=== PATIENT | female | born 1935 | race Caucasian/White ===

== ENCOUNTER 2019-06-10 21:24 | Inpatient (IN) | payer MEDICARE ==
[~2019-06-10] VITALS: Ht 170.2 cm; Wt 54.0 kg
--- NOTE | 2019-06-10 20:30 | NUR ---
New admission, medical/nursing report received from KENYA Singleton. Patient arrived to [facility] acute rehab at 2020; stable condition, AAO x4. Primary language is Nepali. Room air, tolerating well. Vital signs are within normal limits. Pain is 2/10 - verbalized pain being tolerable. Physical assessment done. Skin assessment done. Fall prevention observed. Bed is in low and locked position, side rails up x2 for safety; bed alarm is on. Patient shows signs and symptoms of minor anxiety and irritability. Call light and frequently used items are within reach. Provided all needed education, including on how to use call light. Will continue to monitor and give care.
[2019-06-10] MEDS ORDERED: POLY15DR27 EACHEYE (22:13)
[2019-06-10] MEDS ORDERED: ENOX40DI SQ (22:13)
[2019-06-10] MEDS ORDERED: POLY17PO4 PO (22:13)
[2019-06-10] MEDS ORDERED: FLUT1BLS IH (22:13)
[2019-06-10] MEDS ORDERED: ALEN70TA6 PO (22:13)
[2019-06-10] MEDS ORDERED: AMLO10TA7 PO (22:13)
[2019-06-10] MEDS ORDERED: LOSA25TA3 PO (22:13)
[2019-06-10] MEDS ORDERED: ACET-73 PO (22:13)
[2019-06-10] MEDS ORDERED: MIRT15TA PO (22:13)
[2019-06-10] MEDS ORDERED: ALBU2.5V13 IH (22:13)
[2019-06-10] MEDS ORDERED: MAGN400O6 PO ×2 (22:13)
[2019-06-10] MEDS ORDERED: MAG-55 PO (22:13)
[2019-06-10] MEDS ORDERED: CHOL10002 PO (22:13)
[2019-06-10 22:19] VITALS: BP 124/64
--- NOTE | 2019-06-10 22:40 | NUR ---
Moved patient to room 118 due to patient not liking room 107. Patient expressed feeling anxiety in that room due to the room being too small and no direct view out of the window. Will continue monitor patient.
[2019-06-10] MEDS ORDERED: MAG HYDROX/AL HYDROX/SIMETH 30 ML LIQUID UDC PO PRN (23:45)
[2019-06-11] MEDS: MIRALAX 17 GM POWD.PACK PO SCH (00:15)
[2019-06-11] MEDS: MIRTAZAPINE 15 MG TABLET PO SCH ×2 (00:15→21:06)
[2019-06-11] MEDS: MAGNESIUM HYDROXIDE 30 ML LIQUID UDC PO SCH ×2 (00:16→21:05)
[2019-06-11] MEDS: MAGNESIUM HYDROXIDE 30 ML LIQUID UDC PO PRN (00:16)
--- NOTE | 2019-06-11 01:30 | NUR ---
Routine medication given at 0015 - tolerated well. Patient requested PRN Milk of Magnesia due to constipation - medication given at 0016 & tolerated well. Will continue to monitor patient.
[2019-06-11 04:50] VITALS: BP 138/69
--- NOTE | 2019-06-11 05:23 | NUR ---
Patient slept most of the night and is in stable condition. All needs met and anticipated. Bed is in low and locked position, bed alarm is on, and side rails up x2 for safety. Call light and frequently used items within the reach. Will endorse to oncoming nurse accordingly.
[2019-06-11] MEDS: ALENDRONATE SODIUM 70 MG TABLET PO SCH (07:31)
[2019-06-11] MEDS: ALBUTEROL SULFATE 2.5 MG/ 0.5 ML NEBU IH SCH ×3 (07:35→19:15)
[2019-06-11 08:22] VITALS: BP 146/67
[2019-06-11 08:34] LABS: BASOPHILS # (AUTO) 0.1 K/uL (0.0-8.0); BASOPHILS % (AUTO) 0.6 % (0.0-2.0); EOSINOPHILS # (AUTO) 0.2 K/uL (0.0-0.7); EOSINOPHILS % (AUTO) 1.9 % (0.0-7.0); HEMATOCRIT 37.2 % (31.2-41.9); HEMOGLOBIN 12.5 g/dL (10.9-14.3); LYMPHOCYTES # (AUTO) 1.6 K/uL (20.0-40.0); LYMPHOCYTES % (AUTO) 15.2 % (20.5-51.5); MEAN CORPUSCULAR HEMOGLOBIN 32.2 uug (24.7-32.8); MEAN CORPUSCULAR HGB CONC 34 g/dL (32.3-35.6); MONOCYTES # (AUTO) 1.5 K/uL (2.0-10.0); MONOCYTES % (AUTO) 14.2 % (0.0-11.0); NEUTROPHILS # (AUTO) 7.3 K/uL (1.8-8.9); NEUTROPHILS % (AUTO) 68.1 % (38.5-71.5); PLATELET COUNT (AUTO) 276 K/uL (179-408); RED BLOOD CELL COUNT(AUTO) 3.87 MIL/uL (3.63-4.92); WHITE BLOOD COUNT (AUTO) 10.7 K/uL (3.8-11.8)
[2019-06-11 08:49] LABS: CREATININE 0.9 mg/dL (0.6-1.3); MAGNESIUM 2.7 mg/dL (1.8-2.4); POTASSIUM 3.6 mmol/L (3.5-5.1)
[2019-06-11] MEDS: ENOXAPARIN SODIUM 40 MG/0.4 ML DISP.SYRIN SQ SCH (09:00)
[2019-06-11] MEDS: CHOLECALCIFEROL 1,000 UNIT TABLET PO SCH (13:47)
[2019-06-11] MEDS: FLUTICASONE/VILANTEROL 1 EACH BLST.W.DEV IH SCH (13:47)
[2019-06-11] MEDS: AMLODIPINE 10 MG TABLET PO SCH (13:47)
[2019-06-11] MEDS: LOSARTAN POTASSIUM 25 MG TABLET PO SCH (13:47)
[2019-06-11] MEDS: HYDROCODONE/APAP 5-325MG TABLET PO PRN (13:48)
[2019-06-11 16:00] VITALS: BP 115/52
[2019-06-11] MEDS: POLYVINYL ALCOHOL OPHT DROPS 15 ML BOTTLE EACHEYE SCH (17:05)
--- NOTE | 2019-06-11 19:50 | NUR ---
Pt in stable condition, AXO X3, jesus Warren is by the bedside. pt on 2l Oxygen. Addendum: 06/12/19 at 0147 by OLIVER ROBERTS RN Pt in stable condition, AXO X3, denies any pain raysa. Addendum: 06/12/19 at 0151 by OLIVER ROBERTS RN Disregard previous two notes, intended for different client. Thank you
[2019-06-11 20:38] VITALS: BP 119/60
--- NOTE | 2019-06-11 22:00 | NUR ---
pt c/o new right ear pain, no pain medicine on board, cold back applied, MD light armored reconnaissance officer notified MD light armored reconnaissance officer called back with telephone order of tramadol Q6h.
--- NOTE | 2019-06-11 22:01 | NUR ---
Disregard previous two notes, intended for different client. Thank you
[2019-06-12] MEDS: ALBUTEROL SULFATE 2.5 MG/ 0.5 ML NEBU IH SCH ×4 (00:56→19:54)
--- NOTE | 2019-06-12 01:53 | NUR ---
no acute events overnight, pt in stable condition, denies any pain, able to sleep during night time. will continue to monitor and assess
[2019-06-12 05:15] VITALS: BP 109/61
[2019-06-12] MEDS ORDERED: PATIENT MAY USE OWN MED- MD OK PO SCH (09:00)
[2019-06-12] MEDS: CHOLECALCIFEROL 1,000 UNIT TABLET PO SCH (09:12)
[2019-06-12] MEDS: AMLODIPINE 10 MG TABLET PO SCH (09:13)
[2019-06-12] MEDS: MIRALAX 17 GM POWD.PACK PO SCH (09:13)
[2019-06-12] MEDS: LOSARTAN POTASSIUM 25 MG TABLET PO SCH (09:13)
[2019-06-12] MEDS: FLUTICASONE/VILANTEROL 1 EACH BLST.W.DEV IH SCH (09:14)
[2019-06-12 09:20] VITALS: BP 130/65
[2019-06-12] MEDS: ENOXAPARIN SODIUM 40 MG/0.4 ML DISP.SYRIN SQ SCH (09:24)
[2019-06-12] MEDS: MEGESTROL ACETATE 400 MG/10 ML LIQUID UDC PO SCH (09:28)
[2019-06-12] MEDS: HYDROCODONE/APAP 5-325MG TABLET PO PRN ×2 (09:30→13:46)
[2019-06-12 16:25] VITALS: BP 115/62
[2019-06-12] MEDS: POLYVINYL ALCOHOL OPHT DROPS 15 ML BOTTLE EACHEYE SCH (18:47)
[2019-06-12 20:20] VITALS: BP 108/59
[2019-06-12] MEDS: MIRTAZAPINE 15 MG TABLET PO SCH (20:36)
[2019-06-12] MEDS: MAGNESIUM HYDROXIDE 30 ML LIQUID UDC PO PRN (20:53)
[2019-06-12] MEDS ORDERED: MAGNESIUM HYDROXIDE 30 ML LIQUID UDC PO SCH (21:00)
[2019-06-13] MEDS: ALBUTEROL SULFATE 2.5 MG/ 0.5 ML NEBU IH SCH ×4 (01:24→19:14)
--- NOTE | 2019-06-13 05:05 | NUR ---
Received patient in bed. AAO x3. Not in acute distress or SOB. Able to make needs known. On room air. No Complain of pain. Physical assessment done. All due medications given as ordered and well tolerated. Fall prevention observed. Safety measures maintained. All needs attended promptly. Bed in low and lock position, alarm on, side rails up x2 for safety. Call light and frequently used items within reach. Continue to monitor and will endorse to the oncoming nurse accordingly.
[2019-06-13 05:46] VITALS: BP 111/63
[2019-06-13 08:02] VITALS: BP 96/53
[2019-06-13] MEDS: LOSARTAN POTASSIUM 25 MG TABLET PO SCH (09:00)
[2019-06-13] MEDS: AMLODIPINE 10 MG TABLET PO SCH (09:00)
[2019-06-13] MEDS: CHOLECALCIFEROL 1,000 UNIT TABLET PO SCH (09:08)
[2019-06-13] MEDS: MEGESTROL ACETATE 400 MG/10 ML LIQUID UDC PO SCH (09:12)
[2019-06-13] MEDS: MIRALAX 17 GM POWD.PACK PO SCH (09:13)
[2019-06-13] MEDS: ENOXAPARIN SODIUM 40 MG/0.4 ML DISP.SYRIN SQ SCH (09:16)
[2019-06-13] MEDS: FLUTICASONE/VILANTEROL 1 EACH BLST.W.DEV IH SCH (09:19)
--- NOTE | 2019-06-13 09:56 | NUR ---
Received pt. in bed A/Ox4 verbally responsive and able to make her needs known. In no acute distress, tolerating RA well. All due AM medications administered as ordered with no ASE. Pt. teaching provided regarding meds. No new skin condition noted, LT. hip dressing remain C/D/I. All pt. needs attended and met promptly. Safety measures in place. Call light and all frequently used items within pt. reach. Will continue to monitor accordingly.
--- NOTE | 2019-06-13 10:32 | NUR ---
INDIVIDUALIZE OVERALL PLAN OF CARE
[2019-06-13 15:14] VITALS: BP 109/54
[2019-06-13] MEDS: POLYVINYL ALCOHOL OPHT DROPS 15 ML BOTTLE EACHEYE SCH (17:00)
--- NOTE | 2019-06-13 18:32 | NUR ---
EOS: No significant change during this shift. Pt. refused eye drops for dry eyes, risk and benefits explained and discussed with pt. Pt. verbalized clear understanding of teaching. No new skin condition. All pt. needs attended and met promptly. Safety measures in place. Call light and all frequently used items within pt. reach. Will endorse to oncoming shift accordingly.
[2019-06-13] MEDS: MAGNESIUM HYDROXIDE 30 ML LIQUID UDC PO PRN (20:15)
[2019-06-13] MEDS: MIRTAZAPINE 15 MG TABLET PO SCH (20:15)
[2019-06-13 20:51] VITALS: BP 116/69
[2019-06-14] MEDS: ALBUTEROL SULFATE 2.5 MG/ 0.5 ML NEBU IH SCH ×5 (01:30→20:21)
[2019-06-14 04:30] VITALS: BP 112/60
[2019-06-14 08:17] VITALS: BP 118/55
[2019-06-14] MEDS: FLUTICASONE/VILANTEROL 1 EACH BLST.W.DEV IH SCH (08:50)
[2019-06-14] MEDS: CHOLECALCIFEROL 1,000 UNIT TABLET PO SCH (08:51)
[2019-06-14] MEDS: MIRALAX 17 GM POWD.PACK PO SCH ×2 (08:51→09:00)
[2019-06-14] MEDS: MEGESTROL ACETATE 400 MG/10 ML LIQUID UDC PO SCH (08:52)
[2019-06-14] MEDS: HYDROCODONE/APAP 5-325MG TABLET PO PRN (08:53)
[2019-06-14] MEDS: ENOXAPARIN SODIUM 40 MG/0.4 ML DISP.SYRIN SQ SCH (08:56)
[2019-06-14] MEDS: LOSARTAN POTASSIUM 25 MG TABLET PO SCH (08:57)
[2019-06-14] MEDS: AMLODIPINE 10 MG TABLET PO SCH (08:58)
[2019-06-14 14:57] VITALS: BP 112/56
[2019-06-14] MEDS: POLYVINYL ALCOHOL OPHT DROPS 15 ML BOTTLE EACHEYE SCH (17:08)
[2019-06-14] MEDS: MIRTAZAPINE 15 MG TABLET PO SCH (20:38)
[2019-06-14 21:39] VITALS: BP 110/62
[2019-06-15] MEDS: ALBUTEROL SULFATE 2.5 MG/ 0.5 ML NEBU IH SCH ×4 (00:31→18:59)
--- NOTE | 2019-06-15 05:39 | NUR ---
Patient slept intermittently t/o shift. Denies pain or SOB. Dressing in the left hip, clean/dry and intact. Vital signs stable. Safety and comfort measures maintained t/o shift. All meds given as ordered. All needs met.
[2019-06-15 05:54] VITALS: BP 137/68
[2019-06-15 07:52] VITALS: BP 133/64
[2019-06-15] MEDS: MIRALAX 17 GM POWD.PACK PO SCH (09:00)
[2019-06-15] MEDS: CHOLECALCIFEROL 1,000 UNIT TABLET PO SCH (09:34)
[2019-06-15] MEDS: LOSARTAN POTASSIUM 25 MG TABLET PO SCH (09:35)
[2019-06-15] MEDS: AMLODIPINE 10 MG TABLET PO SCH (09:35)
[2019-06-15] MEDS: FLUTICASONE/VILANTEROL 1 EACH BLST.W.DEV IH SCH (09:35)
[2019-06-15] MEDS: MEGESTROL ACETATE 400 MG/10 ML LIQUID UDC PO SCH (09:35)
[2019-06-15] MEDS: ENOXAPARIN SODIUM 40 MG/0.4 ML DISP.SYRIN SQ SCH (09:38)
[2019-06-15] MEDS: HYDROCODONE/APAP 5-325MG TABLET PO PRN (11:28)
[2019-06-15 15:28] VITALS: BP 90/40
[2019-06-15] MEDS: POLYVINYL ALCOHOL OPHT DROPS 15 ML BOTTLE EACHEYE SCH (18:47)
[2019-06-15 20:23] VITALS: BP 94/60
[2019-06-15] MEDS: MIRTAZAPINE 15 MG TABLET PO SCH (20:54)
[2019-06-16] MEDS: ALBUTEROL SULFATE 2.5 MG/ 0.5 ML NEBU IH SCH ×4 (00:31→21:45)
[2019-06-16 05:22] VITALS: BP 131/63
[2019-06-16 07:41] VITALS: BP 121/66
[2019-06-16 08:10] LABS: BASOPHILS # (AUTO) 0.1 K/uL (0.0-8.0); BASOPHILS % (AUTO) 0.9 % (0.0-2.0); EOSINOPHILS # (AUTO) 0.1 K/uL (0.0-0.7); HEMATOCRIT 32.5 % (31.2-41.9); HEMOGLOBIN 10.9 g/dL (10.9-14.3); LYMPHOCYTES # (AUTO) 1.6 K/uL (20.0-40.0); LYMPHOCYTES % (AUTO) 14.8 % (20.5-51.5); MEAN CORPUSCULAR HEMOGLOBIN 31.6 uug (24.7-32.8); MEAN CORPUSCULAR HGB CONC 33 g/dL (32.3-35.6); MEAN CORPUSCULAR VOLUME 94.6 fL (75.5-95.3); MONOCYTES # (AUTO) 1.4 K/uL (2.0-10.0); NEUTROPHILS # (AUTO) 7.4 K/uL (1.8-8.9); NEUTROPHILS % (AUTO) 70.3 % (38.5-71.5); RED BLOOD CELL COUNT(AUTO) 3.43 MIL/uL (3.63-4.92); WHITE BLOOD COUNT (AUTO) 10.5 K/uL (3.8-11.8)
[2019-06-16 08:26] LABS: PLATELET COUNT (AUTO) 434 K/uL (179-408)
[2019-06-16 08:51] LABS: BILIRUBIN,TOTAL 0.3 mg/dL (0.2-1.0); MAGNESIUM 2.5 mg/dL (1.8-2.4); PHOSPHOROUS 3.5 mg/dL (2.5-4.9); POTASSIUM 3.9 mmol/L (3.5-5.1); TOTAL PROTEIN, SERUM 6.2 g/dL (6.4-8.2)
[2019-06-16] MEDS: MIRALAX 17 GM POWD.PACK PO SCH (09:00)
[2019-06-16] MEDS: AMLODIPINE 10 MG TABLET PO SCH (09:03)
[2019-06-16] MEDS: LOSARTAN POTASSIUM 25 MG TABLET PO SCH (09:03)
[2019-06-16] MEDS: CHOLECALCIFEROL 1,000 UNIT TABLET PO SCH (09:03)
[2019-06-16] MEDS: MEGESTROL ACETATE 400 MG/10 ML LIQUID UDC PO SCH (09:04)
[2019-06-16] MEDS: ENOXAPARIN SODIUM 40 MG/0.4 ML DISP.SYRIN SQ SCH (09:05)
[2019-06-16] MEDS: FLUTICASONE/VILANTEROL 1 EACH BLST.W.DEV IH SCH (09:15)
[2019-06-16 09:34] LABS: THYROID STIMULATING HORMONE 0.263 mIU/mL (0.358-3.740)
[2019-06-16] MEDS: HYDROCODONE/APAP 5-325MG TABLET PO PRN ×2 (09:37→14:40)
--- NOTE | 2019-06-16 13:31 | NUR ---
INTERDISCIPLINARY TEAM CONFERENCE
[2019-06-16] MEDS: ACETAMINOPHEN 325 MG TABLET PO PRN (13:32)
[2019-06-16 15:25] VITALS: BP 88/39
--- NOTE | 2019-06-16 15:42 | NUR ---
RECEIVED PATIENT AWAKE IN BED. ALERT AND ORIENTEDX3-4. CONTINUE PAIN MANAGEMENT PRIOR TO THERAPY AND IF NEEDED. CONTINUE THERAPY FOR INCREASE STRENGHT AND ENDURANCE FROM POST HIP SURGERY. TOLERATED WELL. NOT IN DISTRESS. WILL CONTINUE MONITOR
[2019-06-16] MEDS: POLYVINYL ALCOHOL OPHT DROPS 15 ML BOTTLE EACHEYE SCH (18:07)
[2019-06-16 20:04] VITALS: BP 98/61
[2019-06-16] MEDS: MIRTAZAPINE 15 MG TABLET PO SCH (20:33)
[2019-06-16] MEDS: ATORVASTATIN 10 MG TABLET PO SCH (20:33)
--- NOTE | 2019-06-16 21:20 | NUR ---
resting in bed upon initial rounds. aaox 3-4 no acute distress noted. VSS. [place]. OOB to the BR with walker. Voiding freely.Needs attended. Tolerated po meds well. Denies any pain nor any discomfort. Will monitor patient.
[2019-06-17] MEDS: ALBUTEROL SULFATE 2.5 MG/ 0.5 ML NEBU IH SCH ×4 (02:30→19:14)
[2019-06-17 05:46] VITALS: BP 120/55
--- NOTE | 2019-06-17 06:01 | NUR ---
quiet night. slept welll most of the shift. no acute distress noted. VSS. Voiding freely. OOB to the BR with walker. Needs attended. Kept comfortable. No complaints presented during shift.
--- NOTE | 2019-06-17 07:45 | NUR ---
Patient noted resting in bed at this time, call light in reach, bed locked and in lowest position, no signs of distress noted, request pain medication before therapy for left him pain, all needs met
[2019-06-17 08:00] VITALS: BP 117/60
[2019-06-17] MEDS: CHOLECALCIFEROL 1,000 UNIT TABLET PO SCH (08:55)
[2019-06-17] MEDS: LOSARTAN POTASSIUM 25 MG TABLET PO SCH (08:56)
[2019-06-17] MEDS: AMLODIPINE 10 MG TABLET PO SCH (08:56)
[2019-06-17] MEDS: MEGESTROL ACETATE 400 MG/10 ML LIQUID UDC PO SCH (08:58)
[2019-06-17] MEDS: MIRALAX 17 GM POWD.PACK PO SCH (08:59)
[2019-06-17] MEDS: HYDROCODONE/APAP 5-325MG TABLET PO PRN ×2 (08:59→14:12)
[2019-06-17] MEDS: FLUTICASONE/VILANTEROL 1 EACH BLST.W.DEV IH SCH (08:59)
[2019-06-17] MEDS: ENOXAPARIN SODIUM 40 MG/0.4 ML DISP.SYRIN SQ SCH (09:08)
[2019-06-17 16:56] VITALS: BP 107/51
[2019-06-17] MEDS: POLYVINYL ALCOHOL OPHT DROPS 15 ML BOTTLE EACHEYE SCH (17:20)
[2019-06-17 20:26] VITALS: BP 104/50
[2019-06-17] MEDS: ATORVASTATIN 10 MG TABLET PO SCH (20:39)
[2019-06-17] MEDS: MIRTAZAPINE 15 MG TABLET PO SCH (20:39)
--- NOTE | 2019-06-18 00:21 | NUR ---
resting in bed alert and orientedx2-3 needs attended. VSS. kept comfortable. no acute distress noted. took meds without any difficulty. tolerated po meds well. OOB to the BR with walker to the BR. Voiding freely. Denies any pain nor any discomfort.
[2019-06-18] MEDS: ALBUTEROL SULFATE 2.5 MG/ 0.5 ML NEBU IH SCH ×4 (00:56→21:49)
[2019-06-18] MEDS: ALENDRONATE SODIUM 70 MG TABLET PO SCH (05:42)
[2019-06-18] MEDS: ACETAMINOPHEN 325 MG TABLET PO PRN (05:42)
[2019-06-18 06:05] VITALS: BP 104/57
--- NOTE | 2019-06-18 06:44 | NUR ---
slept well most of the shift. needs attended. VSS kept comfortable. patient has a low grade temp 99.2 Tylenol given. no acute distress noted. Will monitor patient. Voiding freely. Will monitor patient.
--- NOTE | 2019-06-18 07:12 | NUR ---
Patient noted resting in bed with eyes closed, no facial cues of pain noted, no signs of distress noted, call light in reach, bed locked and in lowest position, all needs met at this time
[2019-06-18 07:59] VITALS: BP 118/54
[2019-06-18] MEDS: FLUTICASONE/VILANTEROL 1 EACH BLST.W.DEV IH SCH (08:45)
[2019-06-18] MEDS: HYDROCODONE/APAP 5-325MG TABLET PO PRN ×2 (08:45→13:50)
[2019-06-18] MEDS: CHOLECALCIFEROL 1,000 UNIT TABLET PO SCH (08:45)
[2019-06-18] MEDS: MEGESTROL ACETATE 400 MG/10 ML LIQUID UDC PO SCH (08:46)
[2019-06-18] MEDS: MIRALAX 17 GM POWD.PACK PO SCH (08:46)
[2019-06-18] MEDS: LOSARTAN POTASSIUM 25 MG TABLET PO SCH (08:46)
[2019-06-18] MEDS: AMLODIPINE 10 MG TABLET PO SCH (08:46)
[2019-06-18] MEDS: ENOXAPARIN SODIUM 40 MG/0.4 ML DISP.SYRIN SQ SCH (08:52)
[2019-06-18 16:10] VITALS: BP 91/49
[2019-06-18] MEDS: POLYVINYL ALCOHOL OPHT DROPS 15 ML BOTTLE EACHEYE SCH (17:12)
--- NOTE | 2019-06-18 19:23 | NUR ---
PRN norco given twice this shift at 0900 and 1400, no changes this shift
--- NOTE | 2019-06-18 20:00 | NUR ---
RECEIVED PATIENT AWAKE IN BED WITH VISITOR AT BEDSIDE. PATIENT IS A/O X4. DENIES PAIN OR DISCOMFORT AT THIS TIME. NO RESP. DISTRESS NOTED. VS WNL. CALL LIGHT IN REACH. ALL NEEDS ATTENDED. WILL CONTINUE TO MONITOR AND ASSESS.
[2019-06-18] MEDS: MIRTAZAPINE 15 MG TABLET PO SCH (21:00)
[2019-06-18] MEDS: ATORVASTATIN 10 MG TABLET PO SCH (21:00)
--- NOTE | 2019-06-18 22:00 | NUR ---
REDNESS/SLIGHT EXCORIATION NOTED TO PATIENTS SACRAL AREA AND BUTTOCKS. Z-GUARD AND MEPILEX APPLIED. PICTURE TAKEN AND PLACED IN CHART. ALL NEEDS ATTENDED. WILL CONTINUE TO MONITOR AND ASSESS.
[2019-06-18 22:22] VITALS: BP 104/53
[2019-06-18 23:59] LABS: *BILIRUBIN,URIN NEGATIVE (NEGATIVE); *BLOOD, URINE NEGATIVE (NEGATIVE); *CLARITY,URINE CLEAR (CLEAR); *COLOR,URINE YELLOW (YELLOW); *KETONES,URINE NEGATIVE (NEGATIVE); *UROBILINOGEN,URINE 0.2 E.U./dl (NORMAL); LEUKOCYTE ESTERASE ,URINE NEGATIVE (NEGATIVE); NITRITE, URINE NEGATIVE (NEGATIVE); UGLUCOSE NEGATIVE (NEGATIVE)
[2019-06-19] MEDS: ALBUTEROL SULFATE 2.5 MG/ 0.5 ML NEBU IH SCH ×4 (01:39→19:30)
[2019-06-19] MEDS ORDERED: Z GUARD REMEDY PASTE 57 GM TUBE TOP PRN (05:15)
[2019-06-19 05:44] VITALS: BP 100/70
[2019-06-19 07:50] VITALS: BP 130/74
[2019-06-19] MEDS: ENOXAPARIN SODIUM 40 MG/0.4 ML DISP.SYRIN SQ SCH (08:49)
[2019-06-19] MEDS: MEGESTROL ACETATE 400 MG/10 ML LIQUID UDC PO SCH (08:50)
[2019-06-19] MEDS: FLUTICASONE/VILANTEROL 1 EACH BLST.W.DEV IH SCH (08:50)
[2019-06-19] MEDS: MIRALAX 17 GM POWD.PACK PO SCH (08:51)
[2019-06-19] MEDS: CHOLECALCIFEROL 1,000 UNIT TABLET PO SCH (08:51)
[2019-06-19] MEDS: LOSARTAN POTASSIUM 25 MG TABLET PO SCH (08:52)
[2019-06-19] MEDS: AMLODIPINE 10 MG TABLET PO SCH (08:52)
[2019-06-19 16:38] VITALS: BP 109/57
[2019-06-19] MEDS: POLYVINYL ALCOHOL OPHT DROPS 15 ML BOTTLE EACHEYE SCH (17:27)
[2019-06-19 19:25] VITALS: BP 101/52
--- NOTE | 2019-06-19 20:00 | NUR ---
Patient received into care, laying in bed, resting comfortably, watching tv. Patient has no complaints of pain or discomfort at this time. All safety and fall precaution measures are in place. Call light and personal items are within reach at all times. Will continue to monitor and assess.
[2019-06-19] MEDS: ATORVASTATIN 10 MG TABLET PO SCH (21:09)
[2019-06-19] MEDS: MIRTAZAPINE 15 MG TABLET PO SCH (21:09)
[2019-06-20] MEDS: ALBUTEROL SULFATE 2.5 MG/ 0.5 ML NEBU IH SCH ×4 (00:23→18:50)
[2019-06-20 04:33] VITALS: BP 125/69
--- NOTE | 2019-06-20 06:35 | NUR ---
Patient slept throughout night with no complaints of pain or acute distressed verbalized or noted/observed by nurse. All prescribed medications provided as ordered and tolerated well, with no adverse side effects noted or observed by nurse or verbalized by patient. All nursing needs were met promptly and patient is warm, dry, and comfortable. All safety and fall precaution measures remain in place. Call light and personal items remain within reach at all times.
[2019-06-20 07:25] LABS: BASOPHILS # (AUTO) 0.1 K/uL (0.0-8.0); BASOPHILS % (AUTO) 0.7 % (0.0-2.0); EOSINOPHILS # (AUTO) 0.1 K/uL (0.0-0.7); EOSINOPHILS % (AUTO) 0.6 % (0.0-7.0); HEMATOCRIT 33.7 % (31.2-41.9); HEMOGLOBIN 11.5 g/dL (10.9-14.3); LYMPHOCYTES # (AUTO) 2.2 K/uL (20.0-40.0); LYMPHOCYTES % (AUTO) 20.4 % (20.5-51.5); MEAN CORPUSCULAR HEMOGLOBIN 32.1 uug (24.7-32.8); MEAN CORPUSCULAR HGB CONC 34 g/dL (32.3-35.6); MEAN CORPUSCULAR VOLUME 94.5 fL (75.5-95.3); MONOCYTES % (AUTO) 9.2 % (0.0-11.0); NEUTROPHILS # (AUTO) 7.4 K/uL (1.8-8.9); NEUTROPHILS % (AUTO) 69.1 % (38.5-71.5); RED BLOOD CELL COUNT(AUTO) 3.57 MIL/uL (3.63-4.92); WHITE BLOOD COUNT (AUTO) 10.7 K/uL (3.8-11.8)
[2019-06-20 07:32] LABS: PLATELET COUNT (AUTO) 565 K/uL (179-408)
[2019-06-20 07:39] LABS: ALANINE AMINOTRANSFERASE 26 U/L (14-59); ALKALINE PHOSPHATASE 70 U/L (50-136); ASPARTATE AMINOTRANSFERASE 19 U/L (15-37); BILIRUBIN,TOTAL 0.3 mg/dL (0.2-1.0); CARBON DIOXIDE 25 mmol/L (21-32); CHLORIDE 105 mmol/L (98-107); CREATININE 1.1 mg/dL (0.6-1.3); GLUCOSE 97 mg/dL (74-106); MAGNESIUM 2.2 mg/dL (1.8-2.4); PHOSPHOROUS 2.6 mg/dL (2.5-4.9); TOTAL PROTEIN, SERUM 6.2 g/dL (6.4-8.2); UREA NITROGEN, BLOOD 42 mg/dL (7-18)
[2019-06-20 08:00] VITALS: BP 125/71
[2019-06-20 08:05] LABS: THYROID STIMULATING HORMONE 0.488 mIU/mL (0.358-3.740)
[2019-06-20] MEDS: FLUTICASONE/VILANTEROL 1 EACH BLST.W.DEV IH SCH (08:08)
[2019-06-20] MEDS: MEGESTROL ACETATE 400 MG/10 ML LIQUID UDC PO SCH (08:08)
[2019-06-20] MEDS: AMLODIPINE 10 MG TABLET PO SCH (08:10)
[2019-06-20] MEDS: LOSARTAN POTASSIUM 25 MG TABLET PO SCH (08:10)
[2019-06-20] MEDS: CHOLECALCIFEROL 1,000 UNIT TABLET PO SCH (08:10)
[2019-06-20] MEDS: MIRALAX 17 GM POWD.PACK PO SCH ×2 (08:10→08:32)
[2019-06-20] MEDS: ENOXAPARIN SODIUM 40 MG/0.4 ML DISP.SYRIN SQ SCH (08:13)
[2019-06-20] MEDS: HYDROCODONE/APAP 5-325MG TABLET PO PRN (08:25)
[2019-06-20 16:32] VITALS: BP 116/63
[2019-06-20] MEDS: POLYVINYL ALCOHOL OPHT DROPS 15 ML BOTTLE EACHEYE SCH ×2 (16:45→16:50)
[2019-06-20] MEDS ORDERED: IV NS 1000 ML 1,000 ML IV ONE (18:30)
[2019-06-20 19:54] VITALS: BP 92/53
[2019-06-20] MEDS: MIRTAZAPINE 15 MG TABLET PO SCH (20:36)
[2019-06-20] MEDS: ATORVASTATIN 10 MG TABLET PO SCH (20:36)
[2019-06-20] MEDS: MAGNESIUM HYDROXIDE 30 ML LIQUID UDC PO PRN (21:08)
--- NOTE | 2019-06-20 21:42 | NUR ---
OOB in chair upon initial rounds. OOB to the BR with walker with supervision. Voiding freely. #22 gauge heplock on left hand. BUN 42 IV NSS bolus given per MD's order. c/o of constipation, Milk of magnesia given per order. Fall precautions maintained. Siderails up for safety. VSS. Will monitor patient.
[2019-06-21] MEDS: ALBUTEROL SULFATE 2.5 MG/ 0.5 ML NEBU IH SCH ×4 (00:31→18:42)
[2019-06-21 05:11] VITALS: BP 134/63
--- NOTE | 2019-06-21 06:58 | NUR ---
slept well throughout the night. no acute distress noted. OOB to the BR with walker with supervision. Voiding well. Needs attended. Denies any pain nor any discomfort.VSS.
[2019-06-21 07:12] LABS: BASOPHILS # (AUTO) 0.1 K/uL (0.0-8.0); BASOPHILS % (AUTO) 1.1 % (0.0-2.0); EOSINOPHILS % (AUTO) 0.4 % (0.0-7.0); HEMATOCRIT 31.7 % (31.2-41.9); HEMOGLOBIN 10.7 g/dL (10.9-14.3); LYMPHOCYTES # (AUTO) 1.8 K/uL (20.0-40.0); LYMPHOCYTES % (AUTO) 15.7 % (20.5-51.5); MEAN CORPUSCULAR HEMOGLOBIN 31.2 uug (24.7-32.8); MEAN CORPUSCULAR HGB CONC 34 g/dL (32.3-35.6); MEAN CORPUSCULAR VOLUME 92.6 fL (75.5-95.3); MONOCYTES # (AUTO) 1.1 K/uL (2.0-10.0); MONOCYTES % (AUTO) 9.7 % (0.0-11.0); NEUTROPHILS # (AUTO) 8.3 K/uL (1.8-8.9); NEUTROPHILS % (AUTO) 73.1 % (38.5-71.5); PLATELET COUNT (AUTO) 573 K/uL (179-408); RED BLOOD CELL COUNT(AUTO) 3.42 MIL/uL (3.63-4.92); WHITE BLOOD COUNT (AUTO) 11.4 K/uL (3.8-11.8)
[2019-06-21 07:28] LABS: MAGNESIUM 2.2 mg/dL (1.8-2.4); PHOSPHOROUS 2.5 mg/dL (2.5-4.9); POTASSIUM 4.4 mmol/L (3.5-5.1)
[2019-06-21] MEDS: FLUTICASONE/VILANTEROL 1 EACH BLST.W.DEV IH SCH (09:16)
[2019-06-21] MEDS: LOSARTAN POTASSIUM 25 MG TABLET PO SCH (09:17)
[2019-06-21] MEDS: CHOLECALCIFEROL 1,000 UNIT TABLET PO SCH (09:17)
[2019-06-21] MEDS: HYDROCODONE/APAP 5-325MG TABLET PO PRN (09:18)
[2019-06-21] MEDS: MIRALAX 17 GM POWD.PACK PO SCH (09:19)
[2019-06-21] MEDS: AMLODIPINE 10 MG TABLET PO SCH (09:19)
[2019-06-21] MEDS: MEGESTROL ACETATE 400 MG/10 ML LIQUID UDC PO SCH (09:19)
[2019-06-21] MEDS: ENOXAPARIN SODIUM 40 MG/0.4 ML DISP.SYRIN SQ SCH (09:20)
[2019-06-21 10:11] VITALS: BP 123/66
[2019-06-21] MEDS ORDERED: CLOBETASOL PROPIONATE 0.05% CREAM 15 GM TUBE TOP SCH (10:30)
[2019-06-21 16:37] VITALS: BP 142/76
[2019-06-21] MEDS: POLYVINYL ALCOHOL OPHT DROPS 15 ML BOTTLE EACHEYE SCH (18:19)
--- NOTE | 2019-06-21 19:40 | NUR ---
Patient is AAO x 4, Filipino speaking mostly but able to express needs in Belarusian. NO acute distress noted. Patient in RA and sating above 96%. Vital signs taken and stable for patient. Due medications administered. Right hip surgical site intact and dry. On routine Percocet 5/325mg PO 1 tab for pain mgnt and effective. Pt. on PT/OT therapy. Daughter was here and discussed plan of care and explained procedures and policies regarding pt.'s own medications. Daughter signed and took patient's medications that was received from admission. Thanked for the care provided. Needs met, safety measures in place, call light left at bed side and will continue wit care. Addendum: 06/21/19 at 4 by SHEEBA JETER RN RN Wrong patient charting.
--- NOTE | 2019-06-21 19:45 | NUR ---
Patient is AAO, No acute distress or any [place] of condition noted. VS taken and stable. Due meds administered and tolerated well. Surgical site on Left hip intact and dry. Pt. on PT/OT therapy and tolerating. patient with a walker one person assist and BRP. Needs attended, safety measures in place, call light left at bed side,endorsed to next shift and will continue with care.
[2019-06-21 19:57] VITALS: BP 125/57
[2019-06-21] MEDS: MAGNESIUM HYDROXIDE 30 ML LIQUID UDC PO PRN (20:25)
[2019-06-21] MEDS: ATORVASTATIN 10 MG TABLET PO SCH (20:25)
[2019-06-21] MEDS: MIRTAZAPINE 15 MG TABLET PO SCH (20:25)
--- NOTE | 2019-06-21 21:57 | NUR ---
resting in bed upon rounds. AAOx3-4 VSS no acute distress noted. needs attended. fall precaution maintained. Tolerated po meds well. voiding well in the BR. will monitor patient.
[2019-06-22] MEDS: ALBUTEROL SULFATE 2.5 MG/ 0.5 ML NEBU IH SCH ×4 (00:30→18:48)
[2019-06-22 04:45] VITALS: BP 131/68
--- NOTE | 2019-06-22 05:51 | NUR ---
slept well most of the shift. denies any pain nor any discomfort. VSS. kept comfortable. voiding freely. No BM this shift.
[2019-06-22 07:38] VITALS: BP 138/75
[2019-06-22] MEDS: FLUTICASONE/VILANTEROL 1 EACH BLST.W.DEV IH SCH (08:52)
[2019-06-22] MEDS: MEGESTROL ACETATE 400 MG/10 ML LIQUID UDC PO SCH (08:53)
[2019-06-22] MEDS: MIRALAX 17 GM POWD.PACK PO SCH (08:53)
[2019-06-22] MEDS: AMLODIPINE 10 MG TABLET PO SCH (08:55)
[2019-06-22] MEDS: LOSARTAN POTASSIUM 25 MG TABLET PO SCH (08:55)
[2019-06-22] MEDS: CHOLECALCIFEROL 1,000 UNIT TABLET PO SCH (08:55)
[2019-06-22] MEDS: ENOXAPARIN SODIUM 40 MG/0.4 ML DISP.SYRIN SQ SCH (09:01)
--- NOTE | 2019-06-22 13:34 | NUR ---
Pt received this morning, sitting in wheelchair. Pt assessed, able to make needs known. Pt denies pain, SOB, and discomfort at this time. VSS. Pt compliant with medication administration and therapies as offered. Pt assisted to bed following therapy. Left hip surgical incision dressing intact. No s/s of infection. All safety and comfort needs attended to, call light and personal items within reach. Bed locked, in lowest position with side rails up x2, and alarm on. Will continue to monitor.
[2019-06-22 15:27] VITALS: BP 107/53
[2019-06-22] MEDS: POLYVINYL ALCOHOL OPHT DROPS 15 ML BOTTLE EACHEYE SCH (17:52)
[2019-06-22 20:05] VITALS: BP 112/48
--- NOTE | 2019-06-22 20:17 | NUR ---
RECEIVED PATIENT SITTING UP ON CHAIR WITH VISITOR AT BEDSIDE. PATIENT IN NO ACUTE DISTRESS. DENIES PAIN AT THIS TIME. PATIENT ABLE TO MAKE NEEDS KNOWN. PATIENT ASSISTED TO BATHROOM, AMBULATED WITH WALKER WITH STANDBY ASSIST. TOLERATED AMBULATION TO BATHROOM WELL. ALL NEEDS ATTENDED. WILL CONTINUE TO MONITOR PATIENT. CALL LIGHT AND PERSONAL BELONGINGS KEPT WITHIN PATIENT'S REACH.
[2019-06-22] MEDS: MAGNESIUM HYDROXIDE 30 ML LIQUID UDC PO PRN (20:21)
[2019-06-22] MEDS: ATORVASTATIN 10 MG TABLET PO SCH (20:21)
[2019-06-22] MEDS: MIRTAZAPINE 15 MG TABLET PO SCH (20:21)
[2019-06-23] MEDS: ALBUTEROL SULFATE 2.5 MG/ 0.5 ML NEBU IH SCH ×4 (00:37→19:51)
[2019-06-23 04:12] VITALS: BP 123/59
--- NOTE | 2019-06-23 06:23 | NUR ---
PATIENT IS ALERT AND VERBALLY RESPONSIVE. AFEBRILE. PATIENT ASSISTED TO BATHROOM REQUESTED. ASSISTED BACK TO BED. IN NO ACUTE OR RESPIRATORY DISTRESS. KEPT WARM, DRY, AND COMFORTABLE. FALL AND SAFETY PRECAUTIONS OBSERVED. CALL LIGHT AND PERSONAL BELONGINGS WITHIN REACH. BED WHEELS LOCKED, SIDE RAILS X 2 UP. BED AT LOW POSITION. ALL NEEDS ATTENDED.
[2019-06-23 07:37] VITALS: BP 120/60
[2019-06-23 07:37] LABS: POTASSIUM 4.3 mmol/L (3.5-5.1)
[2019-06-23] MEDS: CHOLECALCIFEROL 1,000 UNIT TABLET PO SCH (08:47)
[2019-06-23] MEDS: MEGESTROL ACETATE 400 MG/10 ML LIQUID UDC PO SCH (08:47)
[2019-06-23] MEDS: MIRALAX 17 GM POWD.PACK PO SCH (08:47)
[2019-06-23] MEDS: AMLODIPINE 10 MG TABLET PO SCH (08:48)
[2019-06-23] MEDS: LOSARTAN POTASSIUM 25 MG TABLET PO SCH (08:48)
[2019-06-23] MEDS: FLUTICASONE/VILANTEROL 1 EACH BLST.W.DEV IH SCH (08:51)
[2019-06-23] MEDS: ENOXAPARIN SODIUM 40 MG/0.4 ML DISP.SYRIN SQ SCH (08:54)
--- NOTE | 2019-06-23 13:44 | NUR ---
INTERDISCIPLINARY TEAM CONFERENCE
[2019-06-23 15:43] VITALS: BP 122/60
[2019-06-23] MEDS: POLYVINYL ALCOHOL OPHT DROPS 15 ML BOTTLE EACHEYE SCH (17:25)
--- NOTE | 2019-06-23 19:45 | NUR ---
PATIENT ALERT ORIENTED NO SOB NO CHEST PAIN. PATIENT HAS NO COMPLAIN OF PAIN AT THIS TIME. LEFT DRESSING INTACT, CONT TO MONITOR.
[2019-06-23 20:40] VITALS: BP 121/60
[2019-06-23] MEDS: MIRTAZAPINE 15 MG TABLET PO SCH (21:20)
[2019-06-23] MEDS: ATORVASTATIN 10 MG TABLET PO SCH (21:20)
[2019-06-23] MEDS: MAGNESIUM HYDROXIDE 30 ML LIQUID UDC PO PRN (21:28)
[2019-06-24] MEDS: ALBUTEROL SULFATE 2.5 MG/ 0.5 ML NEBU IH SCH ×4 (01:30→19:51)
[2019-06-24 06:01] VITALS: BP 106/68
--- NOTE | 2019-06-24 06:38 | NUR ---
PATIENT ALERT ORIENTED, NO SOB NO CHEST PAIN, PATIENT HAS BOWEL MOVEMENT, ASSIST WITH TOILETING. PATIENT SLEPT MOST OF THE NIGHT, CONT TO MONITOR.
[2019-06-24] MEDS: ENOXAPARIN SODIUM 40 MG/0.4 ML DISP.SYRIN SQ SCH (07:54)
[2019-06-24] MEDS: MEGESTROL ACETATE 400 MG/10 ML LIQUID UDC PO SCH (08:00)
[2019-06-24] MEDS: CHOLECALCIFEROL 1,000 UNIT TABLET PO SCH (08:00)
[2019-06-24] MEDS: MIRALAX 17 GM POWD.PACK PO SCH (08:00)
[2019-06-24] MEDS: FLUTICASONE/VILANTEROL 1 EACH BLST.W.DEV IH SCH (08:01)
[2019-06-24 08:02] VITALS: BP 125/70
[2019-06-24] MEDS: LOSARTAN POTASSIUM 25 MG TABLET PO SCH (08:03)
[2019-06-24] MEDS: AMLODIPINE 10 MG TABLET PO SCH (08:03)
[2019-06-24] MEDS: HYDROCODONE/APAP 5-325MG TABLET PO PRN (08:04)
--- NOTE | 2019-06-24 10:00 | NUR ---
Patient noted resting in bed, assisted to wheelchair, took all am medications, call light in reach, bed locked and in lowest position, all needs known
[2019-06-24 15:32] VITALS: BP 94/61
[2019-06-24] MEDS: POLYVINYL ALCOHOL OPHT DROPS 15 ML BOTTLE EACHEYE SCH (18:25)
[2019-06-24 19:40] VITALS: BP 107/53
[2019-06-24] MEDS: MAGNESIUM HYDROXIDE 30 ML LIQUID UDC PO PRN (21:12)
[2019-06-24] MEDS: ATORVASTATIN 10 MG TABLET PO SCH (21:12)
[2019-06-24] MEDS: MIRTAZAPINE 15 MG TABLET PO SCH (21:12)
[2019-06-25] MEDS: ALBUTEROL SULFATE 2.5 MG/ 0.5 ML NEBU IH SCH ×4 (00:47→19:30)
[2019-06-25 04:51] VITALS: BP 106/61
[2019-06-25] MEDS: ALENDRONATE SODIUM 70 MG TABLET PO SCH (05:49)
[2019-06-25 08:00] VITALS: BP 121/69
[2019-06-25] MEDS: CHOLECALCIFEROL 1,000 UNIT TABLET PO SCH (08:28)
[2019-06-25] MEDS: MEGESTROL ACETATE 400 MG/10 ML LIQUID UDC PO SCH (08:28)
[2019-06-25] MEDS: MIRALAX 17 GM POWD.PACK PO SCH (08:28)
[2019-06-25] MEDS: ENOXAPARIN SODIUM 40 MG/0.4 ML DISP.SYRIN SQ SCH (08:28)
[2019-06-25] MEDS: FLUTICASONE/VILANTEROL 1 EACH BLST.W.DEV IH SCH (08:28)
[2019-06-25] MEDS: AMLODIPINE 10 MG TABLET PO SCH (08:34)
[2019-06-25] MEDS: LOSARTAN POTASSIUM 25 MG TABLET PO SCH (08:35)
[2019-06-25 16:48] VITALS: BP 113/62
[2019-06-25] MEDS: POLYVINYL ALCOHOL OPHT DROPS 15 ML BOTTLE EACHEYE SCH (17:48)
--- NOTE | 2019-06-25 19:20 | NUR ---
Received patient lying in bed. AAOx4. In no acute distress. Denies any pain or SOB. VS WNL. Needs assessed and attended to. Safety measure initiated and call ramos within reached.
[2019-06-25 20:09] VITALS: BP 118/53
[2019-06-25] MEDS: MIRTAZAPINE 15 MG TABLET PO SCH (20:31)
[2019-06-25] MEDS: ATORVASTATIN 10 MG TABLET PO SCH (20:31)
[2019-06-25] MEDS: MAGNESIUM HYDROXIDE 30 ML LIQUID UDC PO PRN (20:34)
[2019-06-26] MEDS: ALBUTEROL SULFATE 2.5 MG/ 0.5 ML NEBU IH SCH ×3 (00:31→13:14)
[2019-06-26 04:30] VITALS: BP 124/68
--- NOTE | 2019-06-26 05:34 | NUR ---
Patient slept well last night. Denies any pain or SOB. Dressing to left hip remains intact, dry and clean. Stand by assist to bathroom when needed. Ambulates with walker. Needs attended to and met. Safety measure maintained and call ramos within reached.
[2019-06-26 08:00] VITALS: BP 135/66
[2019-06-26] MEDS: ENOXAPARIN SODIUM 40 MG/0.4 ML DISP.SYRIN SQ SCH (09:33)
[2019-06-26] MEDS: CHOLECALCIFEROL 1,000 UNIT TABLET PO SCH (09:35)
[2019-06-26] MEDS: MIRALAX 17 GM POWD.PACK PO SCH (09:35)
[2019-06-26] MEDS: AMLODIPINE 10 MG TABLET PO SCH (09:35)
[2019-06-26] MEDS: MEGESTROL ACETATE 400 MG/10 ML LIQUID UDC PO SCH (09:35)
[2019-06-26] MEDS: LOSARTAN POTASSIUM 25 MG TABLET PO SCH (09:35)
[2019-06-26] MEDS: FLUTICASONE/VILANTEROL 1 EACH BLST.W.DEV IH SCH (09:35)
[2019-06-26 16:55] VITALS: BP 114/54
--- NOTE | 2019-06-26 17:00 | NUR ---
AMBULANCE HERE TO P/U AND TRANSPORT TO [facility]. D/C ORDER ON FILE D/C PICS IN CHART. LEAVING WITH W/C , BSC, AND WALKER . VSS IN NO ACUTE DISTRESS. IV CATH REMOVED INTACT #22G. MIN BLEEDING
== END 2019-06-26 17:30 | DRG 559 ==
PROVIDERS: ADMIT Physical Medicine & Rehabilitation Pain Medicine; ATTEND Physical Medicine & Rehabilitation Pain Medicine
DX: S72.002D Fracture of unspecified part of neck of left femur, subsequent encounter for closed fracture with routine healing (principal); N17.0 Acute kidney failure with tubular necrosis; E43 Unspecified severe protein-calorie malnutrition; D68.59 Other primary thrombophilia; Z68.1 Body mass index [BMI] 19.9 or less, adult; E78.5 Hyperlipidemia, unspecified; I10 Essential (primary) hypertension; G25.0 Essential tremor; W01.0XXD Fall on same level from slipping, tripping and stumbling without subsequent striking against object, subsequent encounter; M81.0 Age-related osteoporosis without current pathological fracture; F32.9 Major depressive disorder, single episode, unspecified; Z87.891 Personal history of nicotine dependence; E05.90 Thyrotoxicosis, unspecified without thyrotoxic crisis or storm; E86.0 Dehydration; G62.9 Polyneuropathy, unspecified; J45.909 Unspecified asthma, uncomplicated; M19.90 Unspecified osteoarthritis, unspecified site; R62.7 Adult failure to thrive; R26.9 Unspecified abnormalities of gait and mobility; Z88.0 Allergy status to penicillin
CPT/HCPCS: 36415; 73502; 83735; 84100; 84443; 85025; 87086; 94640; 94664; A4663; J1650; J8499; J8999